=== PATIENT | female | born 1955 | race Caucasian/White ===

== ENCOUNTER 2016-09-08 18:15 | Inpatient (IN) | payer BC, MEDICAID ==
[~2016-09-08] VITALS: Ht 149.9 cm; Wt 78.7 kg
--- NOTE | 2016-09-08 18:33 | EKG ---
[address] [address] Test Date: 2016-09-08 Test Time: 18:16:03 Pat Name: COLIN HOPKINS Department: Room: Gender: F Telecommunications Administrator: JACKELINE : 1955 Requested By: ALONDRA BROWN Order Number: [id number] Reading MD: Melvin Coppola Measurements Intervals [place] Rate: 87 P: 0 CA: 104 QRS: 20 QRSD: 90 T: 88 QT: 354 QTc: 432 Interpretive Statements SINUS RHYTHM NON-SPECIFIC ST/T CHANGES Electronically Signed On 09-10-2016 13:16:58 CDT by Melvin Coppola
--- NOTE | 2016-09-08 18:35 | PHYS DOC ---
General Chief Complaint: PSYCH EVALUATION Stated Complaint: PSYCH EVALUATION Time Seen by MD: 18:22 Source: patient, [facility] records Exam Limitations: clinical condition Problems: History of Present Illness Initial Comments Pt is 61/F to ED via EMS from [facility] for medical clearance and [facility] admission. [place] records indicate that pt has stopped eating the past three days. Pt "noncompliant" with her medications and reportedly has refused to bathe the past month. Pt spends her time in bed, won't change her clothes. Pt meds titrated without any real improvement, pt sent for medical clearance and [facility] admission pre-accepted by Dr Cunningham. Full code Timing/Duration: other (3-4 weeks) Severity: severe Modifying Factors: improves with other Associated Symptoms: loss of appetite, malaise, weakness, other Allergies: Coded Allergies: No Known Drug Allergies (Unverified , 09/08/16) Past Medical History Medical History: other (HLP, hypothyroid, chronic pain, HTN, tremor) Surgical History: noncontributory Psychosocial History: other (schizoaffective disorder, MDD, dementia, psychosis , ) Social History Smoker: non-smoker Alcohol: none Drugs: none Review of Systems Constitutional: denies diaphoresis, denies fever EENTM: denies throat swelling, denies mouth swelling Respiratory: denies cough, denies shortness of breath Cardiovascular: denies chest pain, denies syncope Gastrointestinal: denies diarrhea, denies vomiting Musculoskeletal: denies joint swelling, denies neck pain Psychiatric/Neurological: see HPI Hematologic/Lymphatic: denies anemia, denies blood clots Physical Exam General Appearance: no apparent distress (disheveled) Eyes: bilateral eye EOMI, bilateral eye PERRL, bilateral eye normal inspection Ear, Nose, Throat: hearing grossly normal, normal ENT inspection Neck: non-tender, supple Respiratory: normal breath sounds, no respiratory distress Cardiovascular: normal peripheral pulses, regular rate, rhythm Gastrointestinal: normal bowel sounds, soft Back: no CVA tenderness, no vertebral tenderness Extremities: normal inspection Neurologic/Psychiatric: political consultant II-XII nml as tested, no motor/sensory deficits, alert, oriented x 3, depressed affect Skin: normal color, warm/dry Orders, Labs, Meds EKG: NSR 87 bpm, diffuse T flattening borderline low voltage no STEMI UA grossly +, will tx cipro while awaiting C/S Labs unremarkable Pt medically cleared for [facility] admission, Dr Cunningham is accepting. Very prolonged ED course due to lab delay and need for urine sample Departure Time of Disposition: 20:59 Disposition: 09 ADMITTED INPATIENT Diagnosis: MDD, UTI Condition: STABLE Additional Instructions: [facility] admission Dr Cunningham is accepting. Cipro tx UTI C/S pending. ALONDRA BROWN DO September 08, 2016 18:35
[2016-09-08 19:01] LABS: ALBUMIN 3.8 g/dL (3.4-5.0); CREATININE 0.9 mg/dL (0.6-1.0); GFR 63.4; POTASSIUM 3.6 mmol/L (3.5-5.1); TOTAL BILIRUBIN 0.5 mg/dL (0.2-1.0); TOTAL PROTEIN 7.6 g/dL (6.4-8.2)
[2016-09-08 19:38] LABS: BILIRUBIN,URINE NEG (NEG); CLARITY,URINE CLOUDY; COLOR,URINE YELLOW; GLUCOSE,URINE NEG (NEG)
[2016-09-08 19:39] LABS: NITRITE,URINE NEG (NEG); UROBILINOGEN,URINE 0.2 mg/dL (0.2 mg/dL)
[2016-09-08 19:40] LABS: BACTERIA,URINE MOD /HPF (0-FEW); SQUAMOUS EPITHELIAL CELL,UR FEW /LPF
[2016-09-08 20:32] LABS: HEMATOCRIT 43.9 % (36.0-47.0); HEMOGLOBIN 14.8 g/dL (12.0-15.5); RED BLOOD COUNT 5.01 x10^6/uL (3.50-5.40); WHITE BLOOD COUNT 7.6 x10^3/uL (4.0-11.0)
[2016-09-08 20:33] LABS: BASO # 0.1 x10^3/uL (0.0-0.2); BASO % 1 % (0-3); EOS # 0.1 x10^3/uL (0.0-0.7); EOS % 1 % (0-3); LYMPH # 1.6 x10^3/uL (1.0-4.8); LYMPH % 21 % (24-48); MEAN CORPUSCULAR HEMOGLOBIN 30 pg (25-35); MEAN CORPUSCULAR HGB CONC 34 g/dL (31-37); MEAN CORPUSCULAR VOLUME 88 fL (79-100); MONO # 0.5 x10^3/uL (0.0-1.1); MONO % 6 % (0-9); NEUT # 5.4 x10^3uL (1.8-7.7); NEUT % 71 % (31-73); PLATELET COUNT 167 x10^3/uL (140-400); RED CELL DISTRIBUTION WIDTH 14.9 % (11.5-14.5)
[2016-09-08 20:55] LABS: AMPHETAMINE/METHAMPHETAMINE NEG (NEG); BARBITURATES NEG (NEG); BENZODIAZEPINES NEG (NEG); CANNABINOIDS NEG (NEG); COCAINE NEG (NEG); METHADONE NEG (NEG); OPIATES NEG (NEG); PHENCYCLIDINE NEG (NEG)
[2016-09-08] MEDS ORDERED: ACETAMINOPHEN 325 MG TABLET PO PRN ×2 (21:00→23:15)
[2016-09-08 21:35] VITALS: BP 136/80
[2016-09-08] MEDS ORDERED: RISP1TAB3 PO (22:30)
[2016-09-08] MEDS ORDERED: FISH12002 PO (22:30)
[2016-09-08] MEDS ORDERED: RISP0.5T3 PO (22:30)
[2016-09-08] MEDS ORDERED: ATOR10TA60 PO (22:48)
[2016-09-08] MEDS ORDERED: MULT-237 PO (22:48)
[2016-09-08] MEDS ORDERED: BENZ0.5T PO (22:48)
[2016-09-08] MEDS ORDERED: GABA-586 PO (22:48)
[2016-09-08] MEDS ORDERED: LEVO75TA5 PO (22:48)
[2016-09-08] MEDS ORDERED: NAPR220C PO (22:48)
[2016-09-08] MEDS ORDERED: POTA20LI27 PO (22:48)
[2016-09-08] MEDS ORDERED: BUPR300T3 PO (22:48)
[2016-09-08] MEDS: CIPROFLOXACIN HCL 500 MG TABLET PO SCH (22:52)
[2016-09-08] MEDS ORDERED: MAGNESIUM HYDROXIDE 2,400 MG/30 ML ORAL.SUSP. PO PRN (23:15)
[2016-09-08] MEDS ORDERED: METHYL SALICYLATE/MENTHOL TOPICAL OINTMENT 29GM TUBE. TP PRN (23:15)
[2016-09-08] MEDS ORDERED: MAG HYDROX/AL HYDROX/SIMETH 30 ML ORAL.SUSP PO PRN (23:15)
--- NOTE | 2016-09-09 06:21 | ACF ---
Admission Criteria Forms PSYCHIATRIC DISORDERS Clinical Indications for Inpatient Care (Place 'X' for any and all applicable criteria): Ongoing inpatient care may be needed for ANY ONE of the following(1)(2)(3)(4)(6) (7)(8): [ ]I. Danger to self or others not manageable at lower level of care. [X]II. Grave disability (eg, inability to perform self care necessary at lower level of care) [ ]III. Agitation or inappropriate behavior interfering with care for primary condition (eg, attempting to discontinue lines or drains prematurely, unable to cooperate with respiratory care) [ ]IV. Severe disability or disorder indicated by ALL of the following: [ ]a) Severe behavioral health disorder-related symptoms or condition indicated by ANY ONE of the following: [ ]i) Severe problem with cognition, memory, judgment, or impulse control [ ]ii) Severe clinical manifestations (eg, hallucinations, delusions, other acute psychotic symptoms, chiquis, extreme agitation or anxiety) [ ]b) Patient management at lower level of care is not feasible until acute intervention or modification is initiated. Extended stay beyond goal length of stay for the primary condition may be indicated when ANY ONE of the following is present: (1)(2)(3)(4): [ ]a) Patient is a danger to self or others and not manageable at lower level of care. [ ]b) Behavior crisis management, including physical or chemical restraints, is required and is not available at a lower level of care. [ ]c) Behavioral symptoms (e.g., agitation, somnolence, inappropriate behavior) are present, and are not manageable at a lower level of care. [ ]d) Patient cannot understand follow-up treatment and crisis plan. [ ]e) Provider and supports are not sufficiently available at lower level of care. [ ]f) Patient cannot participate (e.g., verify absence of plan for harm) and is in needed of monitoring. The original [employer] content created by [employer] has been revised. The portions of the content which have been revised are identified through the use of italic text or in bold, and [email or web address] has neither reviewed nor approved the modified material. All other unmodified content is copyright [facility] [employer]. Please see references footnoted in the original [facility] edition 2016 Admission Criteria Met?: Yes SABRINA POWER September 09, 2016 06:21
[2016-09-09 06:30] VITALS: BP 146/88
[2016-09-09] MEDS: CIPROFLOXACIN HCL 500 MG TABLET PO SCH ×2 (08:08→22:06)
--- NOTE | 2016-09-09 13:45 | HP ---
ADMIT DATE: 09/09/2016 REASON FOR ADMISSION TO THE SENIOR BEHAVIORAL UNIT: This is a 61-year-old female, who came from [facility] in [place], [place]. It has been reported that she has stopped eating for 3 days, noncompliant with her meds for 3 weeks, has not bathe in 4 weeks, staying in bed, will not change her clothes and possible suicidal ideation. The patient emphatically denies this and became quite angry when I asked her. The patient states she was not feeling good, had a stomach ache and that is why she was not eating. She also states she takes a shower twice a week and she had a shower last night. She was given a shower when she arrived on the unit. Further investigation with questions was not possible because she refused to answer any more questions, got up to leave, but did come back and allowed me to finish my exam. PAST MEDICAL HISTORY: Schizoaffective disorder, major depressive disorder, hyperlipidemia, hypothyroidism, chronic pain, dementia, psychosis, hypertension and tremors. ALLERGIES: None. MEDICATIONS CHANGES: On 08/23/2016, she was prescribed Risperdal 2.5 mg at bedtime. This was discontinued on 09/04/2016 and she was prescribed Risperdal 1 mg at bedtime and 0.5 mg in the morning. Does not appear to be any other medication changes. Also on 08/23/2016, she had been on Wellbutrin 100 mg and it was increased to 300 mg. REVIEW OF SYSTEMS: The patient refused to answer. SOCIAL HISTORY: Resides at [facility]. OBJECTIVE: VITAL SIGNS: Blood pressure 146/88, temperature 97.4, pulse 72, respirations 16, pulse ox 98% on room air. Height is 59 inches, weight 173 pounds, BMI 34.9. GENERAL: The patient allowed me to do minimal exam. HEENT: Her TMs were intact. Her pupils were equal, round, react to light. Extraocular muscles were intact. Nose was patent. Her throat was clear. NECK: Short, supple. LUNGS: Clear. She has a little bit of dowager hump. CARDIOVASCULAR: Regular rhythm and rate. ABDOMEN: Soft, nontender. EXTREMITIES: Without edema. Remainder of the exam was not possible due to the patient leaving. LABORATORY DATA: Negative CBC, random glucose of 158. Magnesium was 2.4. Drug screen negative. Urine 11 to 20 white cells, small leukocyte esterase. ASSESSMENT: A 61-year-old with possible urinary tract infection, major depressive disorder, noncompliant with cares, schizoaffective disorder, hyperlipidemia, hypothyroidism, chronic pain, dementia with psychosis. PLAN: Await the rest of her labs and follow along with Dr. Cunningham and will treat her empirically for UTI until the culture comes back. LAKEISHA STYLES DO DR: MARY KAY/anjum JOB#: [id number] / [id number]
[2016-09-09 15:45] VITALS: BP 160/81
[2016-09-09 19:08] LABS: T3 TOTAL 110 ng/dL (71-180)
[2016-09-09] MEDS ORDERED: NAPROXEN 250 MG TABLET PO PRN (19:45)
--- NOTE | 2016-09-09 21:03 | PDOC ---
Exam Jorge Demential Exam: Jorge Note: Please also refer to the separate dictated note~for this date of service dictated separately.~Patient seen individually. Discussed the patient with Nursing staff reviewed the chart.~Reviewed interim history and current functioning. Reviewed vital signs,~Labs/ Radiology~and current medications noted below. Continue current treatment with the changes noted in the dictated addendum note Assessment: Vital Signs: Vital Signs Date Time Temp Pulse Resp B/P Pulse Ox O2 Delivery O2 Flow Rate FiO2 09/09/16 15:45 97.7 88 19 160/81 95 09/08/16 21:10 Room Air I&O Intake and Output 09/09/16 07:00 # Voids 1 Current Medications: Meds: Current Medications Ciprofloxacin (Cipro) 500 mg BID PO Last administered on 09/09/16 08:08; Start 09/08/16 at 21:30 Acetaminophen (Tylenol) 650 mg PRN Q6HRS PRN PO PAIN / TEMP Last administered on 09/08/16 22:52; Start 09/08/16 at 21:00; Stop 09/08/16 at 23:46; Status DC Acetaminophen (Tylenol) 650 mg PRN Q6HRS PRN PO PAIN / TEMP; Start 09/08/16 at 23:15 Multi-Ingredient Ointment (Analgesic [place]) 1 nely PRN QID PRN TP MUSCLE PAIN; Start 09/08/16 at 23:15 Al Hydroxide/Mg Hydroxide (Mylanta Plus Xs) 15 ml PRN AFTMEALHC PRN PO DYSPEPSIA; Start 09/08/16 at 23:15 Magnesium Hydroxide (Milk Of Magnesia) 2,400 mg PRN QHS PRN PO CONSTIPATION; Start 09/08/16 at 23:15 Risperidone (Risperdal) 1 mg BID PO ; Start 09/09/16 at 21:00 Divalproex Sodium (Depakote Er) 500 mg QHS PO ; Start 09/09/16 at 21:00 Atorvastatin Calcium (Lipitor) 10 mg QHS PO ; Start 09/09/16 at 21:00 Benztropine Mesylate (Cogentin) 0.25 mg DAILY PO ; Start 09/10/16 at 09:00 Bupropion HCl (Wellbutrin Xl) 300 mg DAILY08 PO ; Start 09/10/16 at 08:00 Gabapentin (Neurontin) 300 mg TID PO ; Start 09/09/16 at 21:00 Levothyroxine Sodium (Synthroid) 75 mcg DAILYAC PO ; Start 09/10/16 at 07:30 Potassium Chloride (KCl Oral Soln) 20 meq DAILY PO ; Start 09/10/16 at 09:00 Fish Oil (Fish Oil) 1,000 mg DAILY PO ; Start 09/10/16 at 09:00 Multivitamins/ Calcium (Thera-M Plus) 1 tab DAILY PO ; Start 09/10/16 at 09:00 Naproxen (Naprosyn) 250 mg PRN Q12HR PRN PO PAIN/LEG CRAMPS; Start 09/09/16 at 19:45 Active Scripts Active Reported Naproxen Sodium 220 Mg Capsule 220 Mg PO Q12HR PRN LAST DOSE GIVEN: DATE: TIME: NEXT DOSE DUE: DATE: TIME: Gabapentin 300 Mg Capsule 300 Mg PO TID Levothyroxine Sodium 75 Mcg Tablet 75 Mcg PO DAILYAC Atorvastatin Calcium 10 Mg Tablet 10 Mg PO QHS Wellbutrin Xl (Bupropion Hcl) 300 Mg Tab.er.24h 300 Mg PO DAILY08 LAST DOSE GIVEN: DATE: TIME: NEXT DOSE DUE: DATE: TIME: Daily Vitamin Formula-Minerals (Multivitamin With Minerals) 1 Each Tablet 1 Each PO DAILY LAST DOSE GIVEN: DATE: TIME: NEXT DOSE DUE: DATE: TIME: Benztropine Mesylate 0.5 Mg Tablet 0.25 Mg PO DAILY LAST DOSE GIVEN: DATE: TIME: NEXT DOSE DUE: DATE: TIME: Potassium Chloride Oral Liquid (Potassium Chloride) 20 Meq/15 Ml Liquid 20 Meq PO DAILY LAST DOSE GIVEN: DATE: TIME: NEXT DOSE DUE: DATE: TIME: Risperidone 0.5 Mg Tablet 0.5 Mg PO Q AM LAST DOSE GIVEN: DATE: TIME: NEXT DOSE DUE: DATE: TIME: [place] 3-6-9 1,200 mg Softgel (Fish Oil/Borage/Flax/Om3,6,9#1) 1,200 Mg Capsule 1 ,000 Mg PO DAILY LAST DOSE GIVEN: DATE: TIME: NEXT DOSE DUE: DATE: TIME: Risperidone 1 Mg Tablet 1 Mg PO HS LAST DOSE GIVEN: DATE: TIME: NEXT DOSE DUE: DATE: TIME: Diagnosis: Problems: (1) Urinary tract infection (2) MDD (major depressive disorder) (3) Bipolar affective, mixed, sev w/ psych (4) Anxiety disorder (5) Impulse control disorder (6) Schizoaffective disorder, bipolar type (7) Schizoaffective disorder, chronic condition with acute exacerbation EVERETT BROOKS MD September 09, 2016 21:03
[2016-09-09] MEDS: GABAPENTIN 300 MG CAPSULE. PO SCH (22:05)
[2016-09-09] MEDS: risperiDONE 1 MG TABLET. PO SCH (22:06)
[2016-09-09] MEDS: ATORVASTATIN CALCIUM 10 MG TABLET. PO SCH (22:06)
[2016-09-09] MEDS: DIVALPROEX ER 500 MG TAB.ER.24H PO SCH (22:06)
[2016-09-10 03:10] LABS: HEMOGLOBIN A1C 5.9 % (4.8-5.6)
--- NOTE | 2016-09-10 07:05 | HP ---
ADMIT DATE: 09/09/2016 This is a late entry for 09/09/2016 IDENTIFYING DATA: The patient is a 61-year-old female referred to us from [facility] by Dr. Varela, her primary care physician, after the nursing staff called me as an emergency on account of the patient's increasing psychotic symptoms being noncompliant with medications for 3 weeks, not bathing for 4 weeks, staying in bed, refusing to change clothes, voicing suicidal ideation. She had failed outpatient psychiatric interventions with myself for her schizoaffective disorder, bipolar type and had been getting increasingly psychotic and depressed recently resulting in this referral. CHIEF COMPLAINT: "Leave me alone." HISTORY OF PRESENT ILLNESS: The patient has a long history of schizoaffective disorder, bipolar type. I have followed her from a psychiatric standpoint at the [facility] and she has consistently refused to interact with me, has been withdrawn in her bed, still was compliant until recently. As noted above, she has been increasingly psychotic, depressed, hopeless, worthless voicing suicidal ideation resulting in this referral. No homicidal ideation. Cognitively, she has some memory deficits, but reasonably intact despite this. In the Emergency Room at [facility], she was found to have a UTI, treated on Cipro. PAST PSYCHIATRIC HISTORY: Schizoaffective disorder, bipolar type. PAST MEDICAL HISTORY: Hyperlipidemia, hypothyroidism, hypertension, tremors, chronic pain. DRUG ALLERGIES: Negative. CODE STATUS: Full code. DIET: Regular. FAMILY HISTORY: Noncontributory. SOCIAL HISTORY: No alcohol, drug abuse, physical, sexual or elder abuse. She is not known to be a perpetrator. Vital signs are noted in my initial note. REVIEW OF SYSTEMS: Positive for tiredness. No CV, , pulmonary, eye, ENT system symptoms on review. She is quite withdrawn, irritable, not very interactive. MENTAL STATUS EXAMINATION: The patient is oriented to herself, depressed, angry, irritable as I met with her, quite withdrawn with a flat affect, but since being on the unit, she eaten had eaten breakfast and lunch on 09/09, several bites of supper. Reportedly has been hallucinating, delusional "people are coming in the room with knives to kill me." She has been talking to others who are not there in her room. No active suicidal or homicidal ideation. Attention span short. Short term memory has some deficits. LABORATORY DATA: Reviewed. IMPRESSION: Schizoaffective disorder, bipolar type, depressed with psychotic features; anxiety disorder, unspecified; cognitive disorder, unspecified; impulse control disorder, unspecified; urinary tract infection. Rest diagnoses as above. PLAN: Admit to the geropsychiatry unit at [facility]. I will see the patient daily. From a psychiatric standpoint, medical followup with Dr. Dickerson/Dr. Summers. Increased the Risperdal from current dosage 1.5 mg a day to 2 mg a day, start Depakote ER 500 mg at bedtime. Follow labs level to reach a therapeutic level. Continue Wellbutrin-XL 300 mg a day. Further changes will be determined after the above effects determined and evaluated. MAN Christel BROOKS MD DR: STEPHANIE/anjum JOB#: [id number] / [id number]
[2016-09-10] MEDS: LEVOTHYROXINE 75 MCG TABLET PO SCH (07:30)
[2016-09-10] MEDS: risperiDONE 1 MG TABLET. PO SCH (07:55)
[2016-09-10] MEDS: CIPROFLOXACIN HCL 500 MG TABLET PO SCH ×2 (07:56→20:15)
[2016-09-10] MEDS: GABAPENTIN 300 MG CAPSULE. PO SCH ×3 (07:57→20:21)
[2016-09-10] MEDS: BENZTROPINE MESYLATE 0.5 MG TABLET PO SCH (07:57)
[2016-09-10] MEDS: buPROPion XL 300 MG TAB.ER.24H. PO SCH (07:57)
[2016-09-10] MEDS: OMEGA-3 FATTY ACIDS/FISH OIL 1,000 MG CAPSULE. PO SCH (08:04)
[2016-09-10] MEDS: MULTIVITAMIN with MINERAL TABLET. PO SCH (08:04)
[2016-09-10] MEDS: POTASSIUM CHLORIDE 20 MEQ/15 ML ORAL LIQUID. PO SCH (08:04)
[2016-09-10 09:00] VITALS: BP 145/75
[2016-09-10 15:53] VITALS: BP 122/77
[2016-09-10] MEDS: ATORVASTATIN CALCIUM 10 MG TABLET. PO SCH (20:21)
[2016-09-10] MEDS: DIVALPROEX ER 500 MG TAB.ER.24H PO SCH (20:21)
--- NOTE | 2016-09-10 20:23 | PDOC ---
Exam Jorge Demential Exam: Jorge Note: Please also refer to the separate dictated note~for this date of service dictated separately.~Patient seen individually. Discussed the patient with Nursing staff reviewed the chart.~Reviewed interim history and current functioning. Reviewed vital signs,~Labs/ Radiology~and current medications noted below. Continue current treatment with the changes noted in the dictated addendum note Assessment: Vital Signs: Vital Signs Date Time Temp Pulse Resp B/P (MAP) Pulse Ox O2 Delivery O2 Flow Rate FiO2 09/10/16 15:53 98.4 76 16 122/77 (92) 96 09/08/16 21:10 Room Air I&O Intake and Output 09/10/16 07:00 Intake Total 720 ml Balance 720 ml Intake Oral 720 ml # Voids 1 Current Medications: Meds: Current Medications Ciprofloxacin (Cipro) 500 mg BID PO Last administered on 09/10/16 07:56; Start 09/08/16 at 21:30; Stop 09/10/16 at 10:49; Status DC Acetaminophen (Tylenol) 650 mg PRN Q6HRS PRN PO PAIN / TEMP Last administered on 09/08/16 22:52; Start 09/08/16 at 21:00; Stop 09/08/16 at 23:46; Status DC Acetaminophen (Tylenol) 650 mg PRN Q6HRS PRN PO PAIN / TEMP; Start 09/08/16 at 23:15 Multi-Ingredient Ointment (Analgesic [place]) 1 nely PRN QID PRN TP MUSCLE PAIN; Start 09/08/16 at 23:15 Al Hydroxide/Mg Hydroxide (Mylanta Plus Xs) 15 ml PRN AFTMEALHC PRN PO DYSPEPSIA; Start 09/08/16 at 23:15 Magnesium Hydroxide (Milk Of Magnesia) 2,400 mg PRN QHS PRN PO CONSTIPATION; Start 09/08/16 at 23:15 Risperidone (Risperdal) 1 mg BID PO Last administered on 09/10/16 07:55; Start 09/09/16 at 21:00; Stop 09/10/16 at 17:54; Status DC Divalproex Sodium (Depakote Er) 500 mg QHS PO Last administered on 09/09/16 22: 06; Start 09/09/16 at 21:00 Atorvastatin Calcium (Lipitor) 10 mg QHS PO Last administered on 09/09/16 22:06 ; Start 09/09/16 at 21:00 Benztropine Mesylate (Cogentin) 0.25 mg DAILY PO Last administered on 09/10/16 07:57; Start 09/10/16 at 09:00 Bupropion HCl (Wellbutrin Xl) 300 mg DAILY08 PO Last administered on 09/10/16 07:57; Start 09/10/16 at 08:00 Gabapentin (Neurontin) 300 mg TID PO Last administered on 09/10/16 07:57; Start 09/09/16 at 21:00 Levothyroxine Sodium (Synthroid) 75 mcg DAILYAC PO ; Start 09/10/16 at 07:30 Potassium Chloride (KCl Oral Soln) 20 meq DAILY PO ; Start 09/10/16 at 09:00 Fish Oil (Fish Oil) 1,000 mg DAILY PO ; Start 09/10/16 at 09:00 Multivitamins/ Calcium (Thera-M Plus) 1 tab DAILY PO ; Start 09/10/16 at 09:00 Naproxen (Naprosyn) 250 mg PRN Q12HR PRN PO PAIN/LEG CRAMPS; Start 09/09/16 at 19:45 Ciprofloxacin (Cipro) 250 mg BID PO Last administered on 09/10/16 20:15; Start 09/10/16 at 21:00; Stop 09/11/16 at 09:00 Risperidone (RisperDAL [place]) 25 mg Q2WKS IM ; Start 09/11/16 at 09:00; Status UNV Active Scripts Active Reported Naproxen Sodium 220 Mg Capsule 220 Mg PO Q12HR PRN LAST DOSE GIVEN: DATE: TIME: NEXT DOSE DUE: DATE: TIME: Gabapentin 300 Mg Capsule 300 Mg PO TID Levothyroxine Sodium 75 Mcg Tablet 75 Mcg PO DAILYAC Atorvastatin Calcium 10 Mg Tablet 10 Mg PO QHS Wellbutrin Xl (Bupropion Hcl) 300 Mg Tab.er.24h 300 Mg PO DAILY08 LAST DOSE GIVEN: DATE: TIME: NEXT DOSE DUE: DATE: TIME: Daily Vitamin Formula-Minerals (Multivitamin With Minerals) 1 Each Tablet 1 Each PO DAILY LAST DOSE GIVEN: DATE: TIME: NEXT DOSE DUE: DATE: TIME: Benztropine Mesylate 0.5 Mg Tablet 0.25 Mg PO DAILY LAST DOSE GIVEN: DATE: TIME: NEXT DOSE DUE: DATE: TIME: Potassium Chloride Oral Liquid (Potassium Chloride) 20 Meq/15 Ml Liquid 20 Meq PO DAILY LAST DOSE GIVEN: DATE: TIME: NEXT DOSE DUE: DATE: TIME: Risperidone 0.5 Mg Tablet 0.5 Mg PO Q AM LAST DOSE GIVEN: DATE: TIME: NEXT DOSE DUE: DATE: TIME: [place] 3-6-9 1,200 mg Softgel (Fish Oil/Borage/Flax/Om3,6,9#1) 1,200 Mg Capsule 1 ,000 Mg PO DAILY LAST DOSE GIVEN: DATE: TIME: NEXT DOSE DUE: DATE: TIME: Risperidone 1 Mg Tablet 1 Mg PO HS LAST DOSE GIVEN: DATE: TIME: NEXT DOSE DUE: DATE: TIME: Diagnosis: Problems: (1) Urinary tract infection (2) MDD (major depressive disorder) (3) Bipolar affective, mixed, sev w/ psych (4) Anxiety disorder (5) Impulse control disorder (6) Schizoaffective disorder, bipolar type (7) Schizoaffective disorder, chronic condition with acute exacerbation EVERETT BROOKS MD September 10, 2016 20:23
[2016-09-11 06:37] VITALS: BP 172/107
[2016-09-11] MEDS: LEVOTHYROXINE 75 MCG TABLET PO SCH (07:30)
[2016-09-11 08:00] VITALS: BP 152/80
[2016-09-11] MEDS: buPROPion XL 300 MG TAB.ER.24H. PO SCH (08:00)
[2016-09-11] MEDS: MULTIVITAMIN with MINERAL TABLET. PO SCH (09:00)
[2016-09-11] MEDS: GABAPENTIN 300 MG CAPSULE. PO SCH ×3 (09:00→18:48)
[2016-09-11] MEDS: POTASSIUM CHLORIDE 20 MEQ/15 ML ORAL LIQUID. PO SCH (09:00)
[2016-09-11] MEDS: CIPROFLOXACIN HCL 500 MG TABLET PO SCH (09:00)
[2016-09-11] MEDS: BENZTROPINE MESYLATE 0.5 MG TABLET PO SCH (09:00)
[2016-09-11] MEDS: OMEGA-3 FATTY ACIDS/FISH OIL 1,000 MG CAPSULE. PO SCH (09:00)
[2016-09-11] MEDS ORDERED: risperiDONE MICROSPHERES 25 MG/2 ML DISP.SYRIN. IM SCH (13:00)
[2016-09-11 15:50] VITALS: BP 159/95
[2016-09-11] MEDS: CYANOCOBALAMIN (VITAMIN B-12) 250 MCG TABLET PO SCH (16:46)
[2016-09-11] MEDS: DIVALPROEX ER 500 MG TAB.ER.24H PO SCH (18:48)
[2016-09-11] MEDS: ATORVASTATIN CALCIUM 10 MG TABLET. PO SCH (18:48)
--- NOTE | 2016-09-11 20:14 | PDOC ---
Exam Jorge Demential Exam: Jorge Note: Please also refer to the separate dictated note~for this date of service dictated separately.~Patient seen individually. Discussed the patient with Nursing staff reviewed the chart.~Reviewed interim history and current functioning. Reviewed vital signs,~Labs/ Radiology~and current medications noted below. Continue current treatment with the changes noted in the dictated addendum note Assessment: Vital Signs: Vital Signs Date Time Temp Pulse Resp B/P (MAP) Pulse Ox O2 Delivery O2 Flow Rate FiO2 09/11/16 15:50 97.9 78 20 159/95 (116) 96 09/08/16 21:10 Room Air I&O Intake and Output 09/11/16 07:00 Intake Total 960 ml Balance 960 ml Intake Oral 960 ml # Voids 1 Current Medications: Meds: Current Medications Ciprofloxacin (Cipro) 500 mg BID PO Last administered on 09/10/16 07:56; Start 09/08/16 at 21:30; Stop 09/10/16 at 10:49; Status DC Acetaminophen (Tylenol) 650 mg PRN Q6HRS PRN PO PAIN / TEMP Last administered on 09/08/16 22:52; Start 09/08/16 at 21:00; Stop 09/08/16 at 23:46; Status DC Acetaminophen (Tylenol) 650 mg PRN Q6HRS PRN PO PAIN / TEMP; Start 09/08/16 at 23:15 Multi-Ingredient Ointment (Analgesic [place]) 1 nely PRN QID PRN TP MUSCLE PAIN; Start 09/08/16 at 23:15 Al Hydroxide/Mg Hydroxide (Mylanta Plus Xs) 15 ml PRN AFTMEALHC PRN PO DYSPEPSIA; Start 09/08/16 at 23:15 Magnesium Hydroxide (Milk Of Magnesia) 2,400 mg PRN QHS PRN PO CONSTIPATION; Start 09/08/16 at 23:15 Risperidone (Risperdal) 1 mg BID PO Last administered on 09/10/16 07:55; Start 09/09/16 at 21:00; Stop 09/10/16 at 17:54; Status DC Divalproex Sodium (Depakote Er) 500 mg QHS PO Last administered on 09/11/16 18: 48; Start 09/09/16 at 21:00 Atorvastatin Calcium (Lipitor) 10 mg QHS PO Last administered on 09/11/16 18:48 ; Start 09/09/16 at 21:00 Benztropine Mesylate (Cogentin) 0.25 mg DAILY PO Last administered on 09/10/16 07:57; Start 09/10/16 at 09:00 Bupropion HCl (Wellbutrin Xl) 300 mg DAILY08 PO Last administered on 09/10/16 07:57; Start 09/10/16 at 08:00 Gabapentin (Neurontin) 300 mg TID PO Last administered on 09/11/16 18:48; Start 09/09/16 at 21:00 Levothyroxine Sodium (Synthroid) 75 mcg DAILYAC PO ; Start 09/10/16 at 07:30 Potassium Chloride (KCl Oral Soln) 20 meq DAILY PO ; Start 09/10/16 at 09:00 Fish Oil (Fish Oil) 1,000 mg DAILY PO Last administered on 09/11/16 09:00; Start 09/10/16 at 09:00 Multivitamins/ Calcium (Thera-M Plus) 1 tab DAILY PO ; Start 09/10/16 at 09:00 Naproxen (Naprosyn) 250 mg PRN Q12HR PRN PO PAIN/LEG CRAMPS; Start 09/09/16 at 19:45 Ciprofloxacin (Cipro) 250 mg BID PO Last administered on 09/11/16 09:00; Start 09/10/16 at 21:00; Stop 09/11/16 at 09:00; Status DC Risperidone (RisperDAL CONSTA) 25 mg Q2WKS IM Last administered on 09/11/16 13: 18; Start 09/11/16 at 13:00 Cyanocobalamin (Vitamin B-12) 250 mcg DAILYBFRSUP PO ; Start 09/11/16 at 17:00 Risperidone (Risperdal) 0.5 mg DAILY SL ; Start 09/12/16 at 09:00 Active Scripts Active Reported Naproxen Sodium 220 Mg Capsule 220 Mg PO Q12HR PRN LAST DOSE GIVEN: DATE: TIME: NEXT DOSE DUE: DATE: TIME: Gabapentin 300 Mg Capsule 300 Mg PO TID Levothyroxine Sodium 75 Mcg Tablet 75 Mcg PO DAILYAC Atorvastatin Calcium 10 Mg Tablet 10 Mg PO QHS Wellbutrin Xl (Bupropion Hcl) 300 Mg Tab.er.24h 300 Mg PO DAILY08 LAST DOSE GIVEN: DATE: TIME: NEXT DOSE DUE: DATE: TIME: Daily Vitamin Formula-Minerals (Multivitamin With Minerals) 1 Each Tablet 1 Each PO DAILY LAST DOSE GIVEN: DATE: TIME: NEXT DOSE DUE: DATE: TIME: Benztropine Mesylate 0.5 Mg Tablet 0.25 Mg PO DAILY LAST DOSE GIVEN: DATE: TIME: NEXT DOSE DUE: DATE: TIME: Potassium Chloride Oral Liquid (Potassium Chloride) 20 Meq/15 Ml Liquid 20 Meq PO DAILY LAST DOSE GIVEN: DATE: TIME: NEXT DOSE DUE: DATE: TIME: Risperidone 0.5 Mg Tablet 0.5 Mg PO Q AM LAST DOSE GIVEN: DATE: TIME: NEXT DOSE DUE: DATE: TIME: [place] 3-6-9 1,200 mg Softgel (Fish Oil/Borage/Flax/Om3,6,9#1) 1,200 Mg Capsule 1 ,000 Mg PO DAILY LAST DOSE GIVEN: DATE: TIME: NEXT DOSE DUE: DATE: TIME: Risperidone 1 Mg Tablet 1 Mg PO HS LAST DOSE GIVEN: DATE: TIME: NEXT DOSE DUE: DATE: TIME: Diagnosis: Problems: (1) Urinary tract infection (2) MDD (major depressive disorder) (3) Bipolar affective, mixed, sev w/ psych (4) Anxiety disorder (5) Impulse control disorder (6) Schizoaffective disorder, bipolar type (7) Schizoaffective disorder, chronic condition with acute exacerbation EVERETT BROOKS MD September 11, 2016 20:14
[2016-09-12 02:14] LABS: BACTERIA,URINE FEW /HPF (0-FEW); BILIRUBIN,URINE NEG (NEG); CLARITY,URINE HAZY; COLOR,URINE YELLOW; GLUCOSE,URINE NEG (NEG); NITRITE,URINE NEG (NEG); RBC,URINE OCC /HPF (0-2); UROBILINOGEN,URINE 0.2 mg/dL (0.2 mg/dL)
[2016-09-12 02:15] LABS: SQUAMOUS EPITHELIAL CELL,UR FEW /LPF
--- NOTE | 2016-09-12 02:33 | PN ---
DATE: 09/10/2016 This is a late entry, covers elements not covered in my initial note. SUBJECTIVE: The patient was staffed at treatment team meeting with the entire team and then seen individually at length. Review of her history indicates that symptoms started after she had a hysterectomy in 2003. Since then, her psychotic symptoms have gradually worsened. Son was appointed guardian in 2010. She has a history of not eating for an extended period of time or bathing has been more withdrawn, refusing her medications, slept two hours previous night. Appetite, 50%; I met with her in her room. REVIEW OF SYSTEMS: Positive for being tired. No CV, , pulmonary, eye system symptoms on review. MENTAL STATUS EXAM: Oriented to herself and situation. Speech has some latency, coherent. Abstraction fair, computation impaired, language function intact, attention span short. Mood and affect withdrawn. LABORATORY DATA: Reviewed. IMPRESSION: Schizoaffective disorder, bipolar type, mixed versus depressed with psychotic features. Rest unchanged. PLAN: The patient is very noncompliant with medications. We will check with the son who is the guardian and if he approve, we will start her on Risperdal Consta 25 mg IM every 2 weeks and then gradually taper the oral Risperdal, maintain Wellbutrin and Depakote at the current dosage. Follow labs, level on the Depakote, and then adjust to reach a therapeutic level. EVERETT BROOKS MD DR: STEPHANIE/anjum JOB#: [id number] / [id number]
[2016-09-12 06:14] LABS: BASO # 0.1 x10^3/uL (0.0-0.2); BASO % 2 % (0-3); EOS # 0.1 x10^3/uL (0.0-0.7); EOS % 2 % (0-3); HEMATOCRIT 43.9 % (36.0-47.0); HEMOGLOBIN 14.8 g/dL (12.0-15.5); LYMPH # 2.9 x10^3/uL (1.0-4.8); LYMPH % 39 % (24-48); MEAN CORPUSCULAR HEMOGLOBIN 29 pg (25-35); MEAN CORPUSCULAR HGB CONC 34 g/dL (31-37); MEAN CORPUSCULAR VOLUME 87 fL (79-100); MONO # 0.6 x10^3/uL (0.0-1.1); MONO % 8 % (0-9); NEUT # 3.9 x10^3uL (1.8-7.7); NEUT % 51 % (31-73); PLATELET COUNT 165 x10^3/uL (140-400); RED BLOOD COUNT 5.05 x10^6/uL (3.50-5.40); RED CELL DISTRIBUTION WIDTH 14.8 % (11.5-14.5); WHITE BLOOD COUNT 7.6 x10^3/uL (4.0-11.0)
[2016-09-12 06:29] LABS: ALBUMIN 3.8 g/dL (3.4-5.0); ALBUMIN/GLOBULIN RATIO 1.2 (1.0-1.7); ALK PHOS 98 U/L (46-116); ALT (SGPT) 51 U/L (14-59); ANION GAP 9 (6-14); AST (SGOT) 37 U/L (15-37); BLOOD UREA NITROGEN 8 mg/dL (7-20); BUN/CREATININE RATIO 11 (6-20); CARBON DIOXIDE 28 mmol/L (21-32); CHLORIDE 107 mmol/L (98-107); CREATININE 0.7 mg/dL (0.6-1.0); GFR 84.8; GLUCOSE 100 mg/dL (70-99); POTASSIUM 3.7 mmol/L (3.5-5.1); SODIUM 144 mmol/L (136-145); TOTAL BILIRUBIN 0.9 mg/dL (0.2-1.0); TOTAL PROTEIN 6.9 g/dL (6.4-8.2); VAL ACID < 3 mcg/mL (50-100)
[2016-09-12 06:38] VITALS: BP 166/90
[2016-09-12] MEDS: LEVOTHYROXINE 75 MCG TABLET PO SCH (07:40)
[2016-09-12] MEDS: buPROPion XL 300 MG TAB.ER.24H. PO SCH (07:40)
[2016-09-12] MEDS: BENZTROPINE MESYLATE 0.5 MG TABLET PO SCH (07:41)
[2016-09-12] MEDS: OMEGA-3 FATTY ACIDS/FISH OIL 1,000 MG CAPSULE. PO SCH (07:41)
[2016-09-12] MEDS: MULTIVITAMIN with MINERAL TABLET. PO SCH (07:42)
[2016-09-12] MEDS: GABAPENTIN 300 MG CAPSULE. PO SCH ×3 (07:42→20:07)
[2016-09-12] MEDS: POTASSIUM CHLORIDE 20 MEQ/15 ML ORAL LIQUID. PO SCH (07:42)
[2016-09-12] MEDS ORDERED: risperiDONE ORAL 1 MG/ML 30ml BOTTLE. SL SCH (09:00)
[2016-09-12 16:10] VITALS: BP 120/81
[2016-09-12] MEDS: CYANOCOBALAMIN (VITAMIN B-12) 250 MCG TABLET PO SCH (16:48)
--- NOTE | 2016-09-12 19:09 | PDOC ---
Exam Jorge Demential Exam: Jorge Note: Please also refer to the separate dictated note~for this date of service dictated separately.~Patient seen individually. Discussed the patient with Nursing staff reviewed the chart.~Reviewed interim history and current functioning. Reviewed vital signs,~Labs/ Radiology~and current medications noted below. Continue current treatment with the changes noted in the dictated addendum note Assessment: Vital Signs: Vital Signs Date Time Temp Pulse Resp B/P (MAP) Pulse Ox O2 Delivery O2 Flow Rate FiO2 09/12/16 16:10 98.1 83 19 120/81 (94) 97 09/08/16 21:10 Room Air I&O Intake and Output 09/12/16 07:00 Intake Total 480 ml Balance 480 ml Intake Oral 480 ml # Voids 1 Labs: Laboratory Tests Test 09/12/16 01:40 09/12/16 06:03 Urine Collection Type Unknown Urine Color Yellow Urine Clarity Hazy Urine pH 5.5 Urine Specific [place] >=1.030 Urine Protein Neg (NEG-TRACE) Urine Glucose (UA) Neg mg/dL (NEG) Urine Ketones (Stick) 40 mg/dL (NEG) Urine Blood Neg (NEG) Urine Nitrite Neg (NEG) Urine Bilirubin Neg (NEG) Urine Urobilinogen Dipstick 0.2 mg/dL (0.2 mg/dL) Urine Leukocyte Esterase Neg (NEG) Urine RBC Occ /HPF (0-2) Urine WBC 5-10 /HPF (0-4) Urine Squamous Epithelial Cells Few /LPF Urine Transitional Epithelial Cells Few /LPF Urine Bacteria Few /HPF (0-FEW) Urine Mucus Slight /LPF White Blood Count 7.6 x10^3/uL (4.0-11.0) Red Blood Count 5.05 x10^6/uL (3.50-5.40) Hemoglobin 14.8 g/dL (12.0-15.5) Hematocrit 43.9 % (36.0-47.0) Mean Corpuscular Volume 87 fL (79-100) Mean Corpuscular Hemoglobin 29 pg (25-35) Mean Corpuscular Hemoglobin Concent 34 g/dL (31-37) Red Cell Distribution Width 14.8 % (11.5-14.5) H Platelet Count 165 x10^3/uL (140-400) Neutrophils (%) (Auto) 51 % (31-73) Lymphocytes (%) (Auto) 39 % (24-48) Monocytes (%) (Auto) 8 % (0-9) Eosinophils (%) (Auto) 2 % (0-3) Basophils (%) (Auto) 2 % (0-3) Neutrophils # (Auto) 3.9 x10^3uL (1.8-7.7) Lymphocytes # (Auto) 2.9 x10^3/uL (1.0-4.8) Monocytes # (Auto) 0.6 x10^3/uL (0.0-1.1) Eosinophils # (Auto) 0.1 x10^3/uL (0.0-0.7) Basophils # (Auto) 0.1 x10^3/uL (0.0-0.2) Sodium Level 144 mmol/L (136-145) Potassium Level 3.7 mmol/L (3.5-5.1) Chloride Level 107 mmol/L (98-107) Carbon Dioxide Level 28 mmol/L (21-32) Anion Gap 9 (6-14) Blood Urea Nitrogen 8 mg/dL (7-20) Creatinine 0.7 mg/dL (0.6-1.0) Estimated GFR (Cockcroft-Gault) 84.8 BUN/Creatinine Ratio 11 (6-20) Glucose Level 100 mg/dL (70-99) H Calcium Level 9.0 mg/dL (8.5-10.1) Total Bilirubin 0.9 mg/dL (0.2-1.0) Aspartate Amino Transferase (AST) 37 U/L (15-37) Alanine Aminotransferase (ALT) 51 U/L (14-59) Alkaline Phosphatase 98 U/L (46-116) Total Protein 6.9 g/dL (6.4-8.2) Albumin 3.8 g/dL (3.4-5.0) Albumin/Globulin Ratio 1.2 (1.0-1.7) Valproic Acid Level < 3 mcg/mL (50-100) L Valproic Acid Last Dose Date 09/11/16 Valproic Acid Last Dose Time 2100 Current Medications: Meds: Current Medications Ciprofloxacin (Cipro) 500 mg BID PO Last administered on 09/10/16t 07:56; Start 09/08/16 at 21:30; Stop 09/10/16 at 10:49; Status DC Acetaminophen (Tylenol) 650 mg PRN Q6HRS PRN PO PAIN / TEMP Last administered on 09/08/16 22:52; Start 09/08/16 at 21:00; Stop 09/08/16 at 23:46; Status DC Acetaminophen (Tylenol) 650 mg PRN Q6HRS PRN PO PAIN / TEMP; Start 09/08/16 at 23:15 Multi-Ingredient Ointment (Analgesic [place]) 1 nely PRN QID PRN TP MUSCLE PAIN; Start 09/08/16 at 23:15 Al Hydroxide/Mg Hydroxide (Mylanta Plus Xs) 15 ml PRN AFTMEALHC PRN PO DYSPEPSIA; Start 09/08/16 at 23:15 Magnesium Hydroxide (Milk Of Magnesia) 2,400 mg PRN QHS PRN PO CONSTIPATION; Start 09/08/16 at 23:15 Risperidone (Risperdal) 1 mg BID PO Last administered on 09/10/16 07:55; Start 09/09/16 at 21:00; Stop 09/10/16 at 17:54; Status DC Divalproex Sodium (Depakote Er) 500 mg QHS PO Last administered on 09/11/16 18: 48; Start 09/09/16 at 21:00 Atorvastatin Calcium (Lipitor) 10 mg QHS PO Last administered on 09/11/16 18:48 ; Start 09/09/16 at 21:00 Benztropine Mesylate (Cogentin) 0.25 mg DAILY PO Last administered on 09/12/16 07:41; Start 09/10/16 at 09:00 Bupropion HCl (Wellbutrin Xl) 300 mg DAILY08 PO Last administered on 09/12/16 07:40; Start 09/10/16 at 08:00 Gabapentin (Neurontin) 300 mg TID PO Last administered on 09/12/16 13:39; Start 09/09/16 at 21:00 Levothyroxine Sodium (Synthroid) 75 mcg DAILYAC PO Last administered on 07:40; Start 09/10/16 at 07:30 Potassium Chloride (KCl Oral Soln) 20 meq DAILY PO Last administered on 07:42; Start 09/10/16 at 09:00 Fish Oil (Fish Oil) 1,000 mg DAILY PO Last administered on 09/12/16 07:41; Start 09/10/16 at 09:00 Multivitamins/ Calcium (Thera-M Plus) 1 tab DAILY PO Last administered on 07:42; Start 09/10/16 at 09:00 Naproxen (Naprosyn) 250 mg PRN Q12HR PRN PO PAIN/LEG CRAMPS; Start 09/09/16 at 19:45 Ciprofloxacin (Cipro) 250 mg BID PO Last administered on 09/11/16 09:00; Start 09/10/16 at 21:00; Stop 09/11/16 at 09:00; Status DC Risperidone (RisperDAL CONSTA) 25 mg Q2WKS IM Last administered on 09/11/16 13: 18; Start 09/11/16 at 13:00 Cyanocobalamin (Vitamin B-12) 250 mcg DAILYBFRSUP PO Last administered on 16:48; Start 09/11/16 at 17:00 Risperidone (Risperdal) 0.5 mg DAILY SL Last administered on 09/12/16 07:51; Start 09/12/16 at 09:00; Stop 09/12/16 at 15:54; Status DC Risperidone (Risperdal) 1 mg DAILY SL ; Start 09/13/16 at 09:00 Active Scripts Active Reported Naproxen Sodium 220 Mg Capsule 220 Mg PO Q12HR PRN LAST DOSE GIVEN: DATE: TIME: NEXT DOSE DUE: DATE: TIME: Gabapentin 300 Mg Capsule 300 Mg PO TID Levothyroxine Sodium 75 Mcg Tablet 75 Mcg PO DAILYAC Atorvastatin Calcium 10 Mg Tablet 10 Mg PO QHS Wellbutrin Xl (Bupropion Hcl) 300 Mg Tab.er.24h 300 Mg PO DAILY08 LAST DOSE GIVEN: DATE: TIME: NEXT DOSE DUE: DATE: TIME: Daily Vitamin Formula-Minerals (Multivitamin With Minerals) 1 Each Tablet 1 Each PO DAILY LAST DOSE GIVEN: DATE: TIME: NEXT DOSE DUE: DATE: TIME: Benztropine Mesylate 0.5 Mg Tablet 0.25 Mg PO DAILY LAST DOSE GIVEN: DATE: TIME: NEXT DOSE DUE: DATE: TIME: Potassium Chloride Oral Liquid (Potassium Chloride) 20 Meq/15 Ml Liquid 20 Meq PO DAILY LAST DOSE GIVEN: DATE: TIME: NEXT DOSE DUE: DATE: TIME: Risperidone 0.5 Mg Tablet 0.5 Mg PO Q AM LAST DOSE GIVEN: DATE: TIME: NEXT DOSE DUE: DATE: TIME: [place] 3-6-9 1,200 mg Softgel (Fish Oil/Borage/Flax/Om3,6,9#1) 1,200 Mg Capsule 1 ,000 Mg PO DAILY LAST DOSE GIVEN: DATE: TIME: NEXT DOSE DUE: DATE: TIME: Risperidone 1 Mg Tablet 1 Mg PO HS LAST DOSE GIVEN: DATE: TIME: NEXT DOSE DUE: DATE: TIME: Diagnosis: Problems: (1) MDD (major depressive disorder) (2) Bipolar affective, mixed, sev w/ psych (3) Anxiety disorder (4) Impulse control disorder (5) Schizoaffective disorder, bipolar type (6) Schizoaffective disorder, chronic condition with acute exacerbation EVERETT BROOKS MD September 12, 2016 19:09
[2016-09-12] MEDS: DIVALPROEX ER 500 MG TAB.ER.24H PO SCH (20:07)
[2016-09-12] MEDS: ATORVASTATIN CALCIUM 10 MG TABLET. PO SCH (20:07)
[2016-09-13 06:34] VITALS: BP 121/72
[2016-09-13] MEDS: buPROPion XL 300 MG TAB.ER.24H. PO SCH ×2 (08:00→08:19)
[2016-09-13] MEDS: OMEGA-3 FATTY ACIDS/FISH OIL 1,000 MG CAPSULE. PO SCH ×2 (08:19→09:00)
[2016-09-13] MEDS: MULTIVITAMIN with MINERAL TABLET. PO SCH ×2 (08:19→09:00)
[2016-09-13] MEDS: LEVOTHYROXINE 75 MCG TABLET PO SCH (08:19)
[2016-09-13] MEDS: BENZTROPINE MESYLATE 0.5 MG TABLET PO SCH (08:19)
[2016-09-13] MEDS: GABAPENTIN 300 MG CAPSULE. PO SCH ×4 (08:19→20:05)
[2016-09-13] MEDS: risperiDONE ORAL 1 MG/ML 30ml BOTTLE. SL SCH (08:19)
[2016-09-13] MEDS: POTASSIUM CHLORIDE 20 MEQ/15 ML ORAL LIQUID. PO SCH (08:19)
[2016-09-13 15:42] VITALS: BP 108/70
[2016-09-13] MEDS: CYANOCOBALAMIN (VITAMIN B-12) 250 MCG TABLET PO SCH (17:00)
--- NOTE | 2016-09-13 19:47 | PDOC ---
Exam Jorge Demential Exam: Jorge Note: Please also refer to the separate dictated note~for this date of service dictated separately.~Patient seen individually. Discussed the patient with Nursing staff reviewed the chart.~Reviewed interim history and current functioning. Reviewed vital signs,~Labs/ Radiology~and current medications noted below. Continue current treatment with the changes noted in the dictated addendum note Assessment: Vital Signs: Vital Signs Date Time Temp Pulse Resp B/P (MAP) Pulse Ox O2 Delivery O2 Flow Rate FiO2 09/13/16 15:42 98.6 80 20 108/70 (83) 98 09/08/16 21:10 Room Air I&O Intake and Output 09/13/16 07:00 Intake Total 840 ml Balance 840 ml Intake Oral 840 ml # Voids 1 Current Medications: Meds: Current Medications Ciprofloxacin (Cipro) 500 mg BID PO Last administered on 09/10/16 07:56; Start 09/08/16 at 21:30; Stop 09/10/16 at 10:49; Status DC Acetaminophen (Tylenol) 650 mg PRN Q6HRS PRN PO PAIN / TEMP Last administered on 09/08/16 22:52; Start 09/08/16 at 21:00; Stop 09/08/16 at 23:46; Status DC Acetaminophen (Tylenol) 650 mg PRN Q6HRS PRN PO PAIN / TEMP; Start 09/08/16 at 23:15 Multi-Ingredient Ointment (Analgesic [place]) 1 nely PRN QID PRN TP MUSCLE PAIN; Start 09/08/16 at 23:15 Al Hydroxide/Mg Hydroxide (Mylanta Plus Xs) 15 ml PRN AFTMEALHC PRN PO DYSPEPSIA; Start 09/08/16 at 23:15 Magnesium Hydroxide (Milk Of Magnesia) 2,400 mg PRN QHS PRN PO CONSTIPATION; Start 09/08/16 at 23:15 Risperidone (Risperdal) 1 mg BID PO Last administered on 09/10/16 07:55; Start 09/09/16 at 21:00; Stop 09/10/16 at 17:54; Status DC Divalproex Sodium (Depakote Er) 500 mg QHS PO Last administered on 09/11/16 18: 48; Start 09/09/16 at 21:00; Stop 09/13/16 at 19:26; Status DC Atorvastatin Calcium (Lipitor) 10 mg QHS PO Last administered on 09/11/16 18:48 ; Start 09/09/16 at 21:00 Benztropine Mesylate (Cogentin) 0.25 mg DAILY PO Last administered on 09/13/16 08:19; Start 09/10/16 at 09:00 Bupropion HCl (Wellbutrin Xl) 300 mg DAILY08 PO Last administered on 09/12/16 07:40; Start 09/10/16 at 08:00 Gabapentin (Neurontin) 300 mg TID PO Last administered on 09/12/16 13:39; Start 09/09/16 at 21:00 Levothyroxine Sodium (Synthroid) 75 mcg DAILYAC PO Last administered on 08:19; Start 09/10/16 at 07:30 Potassium Chloride (KCl Oral Soln) 20 meq DAILY PO Last administered on 08:19; Start 09/10/16 at 09:00 Fish Oil (Fish Oil) 1,000 mg DAILY PO Last administered on 09/12/16 07:41; Start 09/10/16 at 09:00 Multivitamins/ Calcium (Thera-M Plus) 1 tab DAILY PO Last administered on 07:42; Start 09/10/16 at 09:00 Naproxen (Naprosyn) 250 mg PRN Q12HR PRN PO PAIN/LEG CRAMPS; Start 09/09/16 at 19:45 Ciprofloxacin (Cipro) 250 mg BID PO Last administered on 09/11/16 09:00; Start 09/10/16 at 21:00; Stop 09/11/16 at 09:00; Status DC Risperidone (RisperDAL CONSTA) 25 mg Q2WKS IM Last administered on 09/11/16 13: 18; Start 09/11/16 at 13:00 Cyanocobalamin (Vitamin B-12) 250 mcg DAILYBFRSUP PO Last administered on 16:48; Start 09/11/16 at 17:00 Risperidone (Risperdal) 0.5 mg DAILY SL Last administered on 09/12/16 07:51; Start 09/12/16 at 09:00; Stop 09/12/16 at 15:54; Status DC Risperidone (Risperdal) 1 mg DAILY SL Last administered on 09/13/16t 08:19; Start 09/13/16 at 09:00 Valproic Acid (Depakene) 500 mg DAILY PEG ; Start 09/14/16 at 09:00 Active Scripts Active Reported Naproxen Sodium 220 Mg Capsule 220 Mg PO Q12HR PRN LAST DOSE GIVEN: DATE: TIME: NEXT DOSE DUE: DATE: TIME: Gabapentin 300 Mg Capsule 300 Mg PO TID Levothyroxine Sodium 75 Mcg Tablet 75 Mcg PO DAILYAC Atorvastatin Calcium 10 Mg Tablet 10 Mg PO QHS Wellbutrin Xl (Bupropion Hcl) 300 Mg Tab.er.24h 300 Mg PO DAILY08 LAST DOSE GIVEN: DATE: TIME: NEXT DOSE DUE: DATE: TIME: Daily Vitamin Formula-Minerals (Multivitamin With Minerals) 1 Each Tablet 1 Each PO DAILY LAST DOSE GIVEN: DATE: TIME: NEXT DOSE DUE: DATE: TIME: Benztropine Mesylate 0.5 Mg Tablet 0.25 Mg PO DAILY LAST DOSE GIVEN: DATE: TIME: NEXT DOSE DUE: DATE: TIME: Potassium Chloride Oral Liquid (Potassium Chloride) 20 Meq/15 Ml Liquid 20 Meq PO DAILY LAST DOSE GIVEN: DATE: TIME: NEXT DOSE DUE: DATE: TIME: Risperidone 0.5 Mg Tablet 0.5 Mg PO Q AM LAST DOSE GIVEN: DATE: TIME: NEXT DOSE DUE: DATE: TIME: [place] 3-6-9 1,200 mg Softgel (Fish Oil/Borage/Flax/Om3,6,9#1) 1,200 Mg Capsule 1 ,000 Mg PO DAILY LAST DOSE GIVEN: DATE: TIME: NEXT DOSE DUE: DATE: TIME: Risperidone 1 Mg Tablet 1 Mg PO HS LAST DOSE GIVEN: DATE: TIME: NEXT DOSE DUE: DATE: TIME: Diagnosis: Problems: (1) Urinary tract infection (2) MDD (major depressive disorder) (3) Bipolar affective, mixed, sev w/ psych (4) Anxiety disorder (5) Impulse control disorder (6) Schizoaffective disorder, bipolar type (7) Schizoaffective disorder, chronic condition with acute exacerbation EVERETT BROOKS MD September 13, 2016 19:47
[2016-09-13] MEDS: ATORVASTATIN CALCIUM 10 MG TABLET. PO SCH (20:05)
--- NOTE | 2016-09-13 21:23 | PN ---
DATE: 09/11/2016 PSYCHIATRIC PROGRESS NOTE This is late entry of 09/11/2016, covers elements not covered in my initial note. SUBJECTIVE: The patient had breakfast, no lunch, ate some dinner. Remains quite withdrawn, psychotic and restless. REVIEW OF SYSTEMS: Positive for tiredness. No CV, , pulmonary, eye, ENT system symptoms on review. Reliability varies. MENTAL STATUS EXAMINATION: Reasonably oriented. Speech, often responses monosyllabic. Abstraction fair, computation impaired, language function intact, attention span short. Mood and affect withdrawn, still paranoid, suspicious. LABORATORY DATA: Reviewed. IMPRESSION: Unchanged from initial note. PLAN: Continue Risperdal Consta, Depakote, Wellbutrin, start liquid oral, Risperdal 0.5 mg a day. Adjust further as clinically indicated. MAN Christel BROOKS MD DR: STEPHANIE/anjum JOB#: [id number] / [id number]
--- NOTE | 2016-09-13 22:51 | PN ---
DATE: 09/12/2016 PSYCHIATRIC PROGRESS NOTE This is late entry of 09/12/2016, covers elements not covered in my initial note. SUBJECTIVE: The patient has been withdrawn, irritable, paranoid, appetite poor, refusing medications. LABORATORY DATA: AST, ALT unremarkable. REVIEW OF SYSTEMS: Positive for tiredness. No CV, , pulmonary, eye system symptoms on review. MENTAL STATUS EXAMINATION: Oriented to herself and situation. Speech often responses monosyllabic. Abstraction fair, computation impaired, language function intact. Attention span short, still psychotic. LABORATORY DATA: Reviewed. IMPRESSION: Unchanged from initial note. PLAN: Increase liquid Risperdal to 1 mg a day, maintain. Rest unchanged. Adjust further as clinically indicated. MAN Christel BROOKS MD DR: STEPHANIE/anjum JOB#: [id number] / [id number]
[2016-09-14 06:42] VITALS: BP 169/98
[2016-09-14] MEDS: LEVOTHYROXINE 75 MCG TABLET PO SCH (07:30)
[2016-09-14] MEDS: buPROPion XL 300 MG TAB.ER.24H. PO SCH (08:00)
[2016-09-14] MEDS: VALPROATE ACID 250 MG/5 ML ORAL SOLUTION PO SCH (09:00)
[2016-09-14] MEDS: OMEGA-3 FATTY ACIDS/FISH OIL 1,000 MG CAPSULE. PO SCH (09:00)
[2016-09-14] MEDS: MULTIVITAMIN with MINERAL TABLET. PO SCH (09:00)
[2016-09-14] MEDS ORDERED: VALPROATE ACID 250 MG/5 ML ORAL SOLUTION PEG SCH (09:00)
[2016-09-14] MEDS: BENZTROPINE MESYLATE 0.5 MG TABLET PO SCH (09:00)
[2016-09-14] MEDS: POTASSIUM CHLORIDE 20 MEQ/15 ML ORAL LIQUID. PO SCH (09:00)
[2016-09-14] MEDS: GABAPENTIN 300 MG CAPSULE. PO SCH ×3 (13:40→20:35)
[2016-09-14] MEDS: CYANOCOBALAMIN (VITAMIN B-12) 250 MCG TABLET PO SCH (13:40)
[2016-09-14] MEDS: risperiDONE ORAL 1 MG/ML 30ml BOTTLE. SL SCH (13:44)
[2016-09-14 16:07] VITALS: BP 119/75
--- NOTE | 2016-09-14 20:03 | PDOC ---
Exam Jorge Demential Exam: Jorge Note: Please also refer to the separate dictated note~for this date of service dictated separately.~Patient seen individually. Discussed the patient with Nursing staff reviewed the chart.~Reviewed interim history and current functioning. Reviewed vital signs,~Labs/ Radiology~and current medications noted below. Continue current treatment with the changes noted in the dictated addendum note Assessment: Vital Signs: Vital Signs Date Time Temp Pulse Resp B/P (MAP) Pulse Ox O2 Delivery O2 Flow Rate FiO2 09/14/16 16:07 97.9 71 16 119/75 (90) 98 09/08/16 21:10 Room Air I&O Intake and Output 09/14/16 07:00 Intake Total 360 ml Balance 360 ml Intake Oral 360 ml Current Medications: Meds: Current Medications Ciprofloxacin (Cipro) 500 mg BID PO Last administered on 09/10/16 07:56; Start 09/08/16 at 21:30; Stop 09/10/16 at 10:49; Status DC Acetaminophen (Tylenol) 650 mg PRN Q6HRS PRN PO PAIN / TEMP Last administered on 09/08/16 22:52; Start 09/08/16 at 21:00; Stop 09/08/16 at 23:46; Status DC Acetaminophen (Tylenol) 650 mg PRN Q6HRS PRN PO PAIN / TEMP; Start 09/08/16 at 23:15 Multi-Ingredient Ointment (Analgesic [place]) 1 nely PRN QID PRN TP MUSCLE PAIN; Start 09/08/16 at 23:15 Al Hydroxide/Mg Hydroxide (Mylanta Plus Xs) 15 ml PRN AFTMEALHC PRN PO DYSPEPSIA; Start 09/08/16 at 23:15 Magnesium Hydroxide (Milk Of Magnesia) 2,400 mg PRN QHS PRN PO CONSTIPATION; Start 09/08/16 at 23:15 Risperidone (Risperdal) 1 mg BID PO Last administered on 09/10/16 07:55; Start 09/09/16 at 21:00; Stop 09/10/16 at 17:54; Status DC Divalproex Sodium (Depakote Er) 500 mg QHS PO Last administered on 09/11/16 18: 48; Start 09/09/16 at 21:00; Stop 09/13/16 at 19:26; Status DC Atorvastatin Calcium (Lipitor) 10 mg QHS PO Last administered on 09/11/16 18:48 ; Start 09/09/16 at 21:00 Benztropine Mesylate (Cogentin) 0.25 mg DAILY PO Last administered on 09/13/16 08:19; Start 09/10/16 at 09:00 Bupropion HCl (Wellbutrin Xl) 300 mg DAILY08 PO Last administered on 09/12/16 07:40; Start 09/10/16 at 08:00 Gabapentin (Neurontin) 300 mg TID PO Last administered on 09/14/16 13:40; Start 09/09/16 at 21:00 Levothyroxine Sodium (Synthroid) 75 mcg DAILYAC PO Last administered on 08:19; Start 09/10/16 at 07:30 Potassium Chloride (KCl Oral Soln) 20 meq DAILY PO Last administered on 08:19; Start 09/10/16 at 09:00 Fish Oil (Fish Oil) 1,000 mg DAILY PO Last administered on 09/12/16 07:41; Start 09/10/16 at 09:00 Multivitamins/ Calcium (Thera-M Plus) 1 tab DAILY PO Last administered on 07:42; Start 09/10/16 at 09:00 Naproxen (Naprosyn) 250 mg PRN Q12HR PRN PO PAIN/LEG CRAMPS; Start 09/09/16 at 19:45 Ciprofloxacin (Cipro) 250 mg BID PO Last administered on 09/11/16 09:00; Start 09/10/16 at 21:00; Stop 09/11/16 at 09:00; Status DC Risperidone (RisperDAL CONSTA) 25 mg Q2WKS IM Last administered on 09/11/16 13: 18; Start 09/11/16 at 13:00 Cyanocobalamin (Vitamin B-12) 250 mcg DAILYBFRSUP PO Last administered on 13:40; Start 09/11/16 at 17:00 Risperidone (Risperdal) 0.5 mg DAILY SL Last administered on 09/12/16 07:51; Start 09/12/16 at 09:00; Stop 09/12/16 at 15:54; Status DC Risperidone (Risperdal) 1 mg DAILY SL Last administered on 09/14/16t 13:44; Start 09/13/16 at 09:00 Valproic Acid (Depakene) 500 mg DAILY PEG ; Start 09/14/16 at 09:00; Stop at 09:00; Status DC Valproic Acid (Depakene) 500 mg DAILY PO ; Start 09/14/16 at 09:00 Mirtazapine (Remeron Patricia-Tab) 15 mg QHS PO ; Start 09/14/16 at 21:00 Active Scripts Active Reported Naproxen Sodium 220 Mg Capsule 220 Mg PO Q12HR PRN LAST DOSE GIVEN: DATE: TIME: NEXT DOSE DUE: DATE: TIME: Gabapentin 300 Mg Capsule 300 Mg PO TID Levothyroxine Sodium 75 Mcg Tablet 75 Mcg PO DAILYAC Atorvastatin Calcium 10 Mg Tablet 10 Mg PO QHS Wellbutrin Xl (Bupropion Hcl) 300 Mg Tab.er.24h 300 Mg PO DAILY08 LAST DOSE GIVEN: DATE: TIME: NEXT DOSE DUE: DATE: TIME: Daily Vitamin Formula-Minerals (Multivitamin With Minerals) 1 Each Tablet 1 Each PO DAILY LAST DOSE GIVEN: DATE: TIME: NEXT DOSE DUE: DATE: TIME: Benztropine Mesylate 0.5 Mg Tablet 0.25 Mg PO DAILY LAST DOSE GIVEN: DATE: TIME: NEXT DOSE DUE: DATE: TIME: Potassium Chloride Oral Liquid (Potassium Chloride) 20 Meq/15 Ml Liquid 20 Meq PO DAILY LAST DOSE GIVEN: DATE: TIME: NEXT DOSE DUE: DATE: TIME: Risperidone 0.5 Mg Tablet 0.5 Mg PO Q AM LAST DOSE GIVEN: DATE: TIME: NEXT DOSE DUE: DATE: TIME: [place] 3-6-9 1,200 mg Softgel (Fish Oil/Borage/Flax/Om3,6,9#1) 1,200 Mg Capsule 1 ,000 Mg PO DAILY LAST DOSE GIVEN: DATE: TIME: NEXT DOSE DUE: DATE: TIME: Risperidone 1 Mg Tablet 1 Mg PO HS LAST DOSE GIVEN: DATE: TIME: NEXT DOSE DUE: DATE: TIME: Diagnosis: Problems: (1) Urinary tract infection (2) MDD (major depressive disorder) (3) Bipolar affective, mixed, sev w/ psych (4) Anxiety disorder (5) Impulse control disorder (6) Schizoaffective disorder, bipolar type (7) Schizoaffective disorder, chronic condition with acute exacerbation EVERETT BROOKS MD September 14, 2016 20:03
[2016-09-14] MEDS: MIRTAZAPINE 15 MG TAB.RAPDIS PO SCH (20:34)
[2016-09-14] MEDS: ATORVASTATIN CALCIUM 10 MG TABLET. PO SCH (20:35)
--- NOTE | 2016-09-15 00:46 | PN ---
DATE: 09/13/2016 This is a late entry, covers elements not covered in my initial note. SUBJECTIVE: The patient slept poorly the previous night, refusing her psychotropics. We will change the Depakote ER to liquid and mixed in food and fluids. Follow labs level and she is getting the Risperdal Consta and Risperdal concentrate. REVIEW OF SYSTEMS: Ambulation impaired. No CV, , pulmonary, eye, ENT system, symptoms on review. Reliability varies. MENTAL STATUS EXAM: Oriented to herself and situation. Speech has some latency, coherent. Abstraction fair, computation impaired, language function intact, attention span short. Mood and affect remain somewhat labile. LABORATORY DATA: Reviewed. IMPRESSION: Schizoaffective disorder, bipolar type, mixed with psychotic features. Rest unchanged. PLAN: Continue current psychotropics mentioned in my initial note, change the Depakote to liquid. Check CBC, CMP, and valproic acid level in 3 days. Adjust further as clinically indicated. MAN Christel BROOKS MD DR: STEPHANIE/anjum JOB#: [id number] / [id number]
[2016-09-15 05:58] VITALS: BP 105/62
[2016-09-15] MEDS: LEVOTHYROXINE 75 MCG TABLET PO SCH ×2 (07:42→08:25)
[2016-09-15] MEDS: buPROPion XL 300 MG TAB.ER.24H. PO SCH ×2 (07:43→08:25)
[2016-09-15] MEDS: VALPROATE ACID 250 MG/5 ML ORAL SOLUTION PO SCH (07:44)
[2016-09-15] MEDS: POTASSIUM CHLORIDE 20 MEQ/15 ML ORAL LIQUID. PO SCH (07:44)
[2016-09-15] MEDS: risperiDONE ORAL 1 MG/ML 30ml BOTTLE. SL SCH (07:52)
[2016-09-15] MEDS: BENZTROPINE MESYLATE 0.5 MG TABLET PO SCH ×2 (08:01→08:25)
[2016-09-15] MEDS: MULTIVITAMIN with MINERAL TABLET. PO SCH ×2 (08:02→08:25)
[2016-09-15] MEDS: GABAPENTIN 300 MG CAPSULE. PO SCH ×4 (08:02→19:59)
[2016-09-15] MEDS: OMEGA-3 FATTY ACIDS/FISH OIL 1,000 MG CAPSULE. PO SCH (08:02)
[2016-09-15 14:46] VITALS: BP 99/63
[2016-09-15] MEDS: CYANOCOBALAMIN (VITAMIN B-12) 250 MCG TABLET PO SCH ×2 (17:05→17:48)
[2016-09-15] MEDS: ATORVASTATIN CALCIUM 10 MG TABLET. PO SCH (19:59)
[2016-09-15] MEDS: MIRTAZAPINE 15 MG TAB.RAPDIS PO SCH (19:59)
--- NOTE | 2016-09-15 21:02 | PDOC ---
Exam Jorge Demential Exam: Jorge Note: Please also refer to the separate dictated note~for this date of service dictated separately.~Patient seen individually. Discussed the patient with Nursing staff reviewed the chart.~Reviewed interim history and current functioning. Reviewed vital signs,~Labs/ Radiology~and current medications noted below. Continue current treatment with the changes noted in the dictated addendum note Assessment: Vital Signs: Vital Signs Date Time Temp Pulse Resp B/P (MAP) Pulse Ox O2 Delivery O2 Flow Rate FiO2 09/15/16 14:46 98.2 82 18 99/63 (75) 94 I&O Intake and Output 09/15/16 07:00 Intake Total 120 ml Balance 120 ml Intake Oral 120 ml Current Medications: Meds: Current Medications Ciprofloxacin (Cipro) 500 mg BID PO Last administered on 09/10/16 07:56; Start 09/08/16 at 21:30; Stop 09/10/16 at 10:49; Status DC Acetaminophen (Tylenol) 650 mg PRN Q6HRS PRN PO PAIN / TEMP Last administered on 09/08/16 22:52; Start 09/08/16 at 21:00; Stop 09/08/16 at 23:46; Status DC Acetaminophen (Tylenol) 650 mg PRN Q6HRS PRN PO PAIN / TEMP; Start 09/08/16 at 23:15 Multi-Ingredient Ointment (Analgesic [place]) 1 nely PRN QID PRN TP MUSCLE PAIN; Start 09/08/16 at 23:15 Al Hydroxide/Mg Hydroxide (Mylanta Plus Xs) 15 ml PRN AFTMEALHC PRN PO DYSPEPSIA; Start 09/08/16 at 23:15 Magnesium Hydroxide (Milk Of Magnesia) 2,400 mg PRN QHS PRN PO CONSTIPATION; Start 09/08/16 at 23:15 Risperidone (Risperdal) 1 mg BID PO Last administered on 09/10/16 07:55; Start 09/09/16 at 21:00; Stop 09/10/16 at 17:54; Status DC Divalproex Sodium (Depakote Er) 500 mg QHS PO Last administered on 09/11/16 18: 48; Start 09/09/16 at 21:00; Stop 09/13/16 at 19:26; Status DC Atorvastatin Calcium (Lipitor) 10 mg QHS PO Last administered on 09/11/16 18:48 ; Start 09/09/16 at 21:00 Benztropine Mesylate (Cogentin) 0.25 mg DAILY PO Last administered on 09/13/16 08:19; Start 09/10/16 at 09:00 Bupropion HCl (Wellbutrin Xl) 300 mg DAILY08 PO Last administered on 09/12/16 07:40; Start 09/10/16 at 08:00 Gabapentin (Neurontin) 300 mg TID PO Last administered on 09/14/16 13:40; Start 09/09/16 at 21:00 Levothyroxine Sodium (Synthroid) 75 mcg DAILYAC PO Last administered on 08:19; Start 09/10/16 at 07:30 Potassium Chloride (KCl Oral Soln) 20 meq DAILY PO Last administered on 07:44; Start 09/10/16 at 09:00 Fish Oil (Fish Oil) 1,000 mg DAILY PO Last administered on 09/15/16 08:02; Start 09/10/16 at 09:00 Multivitamins/ Calcium (Thera-M Plus) 1 tab DAILY PO Last administered on 07:42; Start 09/10/16 at 09:00 Naproxen (Naprosyn) 250 mg PRN Q12HR PRN PO PAIN/LEG CRAMPS; Start 09/09/16 at 19:45 Ciprofloxacin (Cipro) 250 mg BID PO Last administered on 09/11/16 09:00; Start 09/10/16 at 21:00; Stop 09/11/16 at 09:00; Status DC Risperidone (RisperDAL CONSTA) 25 mg Q2WKS IM Last administered on 09/11/16 13: 18; Start 09/11/16 at 13:00 Cyanocobalamin (Vitamin B-12) 250 mcg DAILYBFRSUP PO Last administered on 13:40; Start 09/11/16 at 17:00 Risperidone (Risperdal) 0.5 mg DAILY SL Last administered on 09/12/16 07:51; Start 09/12/16 at 09:00; Stop 09/12/16 at 15:54; Status DC Risperidone (Risperdal) 1 mg DAILY SL Last administered on 09/15/16 07:52; Start 09/13/16 at 09:00 Valproic Acid (Depakene) 500 mg DAILY PEG ; Start 09/14/16 at 09:00; Stop at 09:00; Status DC Valproic Acid (Depakene) 500 mg DAILY PO Last administered on 09/15/16 07:44; Start 09/14/16 at 09:00 Mirtazapine (Remeron Patricia-Tab) 15 mg QHS PO Last administered on 09/15/16 19:59 ; Start 09/14/16 at 21:00 Active Scripts Active Reported Naproxen Sodium 220 Mg Capsule 220 Mg PO Q12HR PRN LAST DOSE GIVEN: DATE: TIME: NEXT DOSE DUE: DATE: TIME: Gabapentin 300 Mg Capsule 300 Mg PO TID Levothyroxine Sodium 75 Mcg Tablet 75 Mcg PO DAILYAC Atorvastatin Calcium 10 Mg Tablet 10 Mg PO QHS Wellbutrin Xl (Bupropion Hcl) 300 Mg Tab.er.24h 300 Mg PO DAILY08 LAST DOSE GIVEN: DATE: TIME: NEXT DOSE DUE: DATE: TIME: Daily Vitamin Formula-Minerals (Multivitamin With Minerals) 1 Each Tablet 1 Each PO DAILY LAST DOSE GIVEN: DATE: TIME: NEXT DOSE DUE: DATE: TIME: Benztropine Mesylate 0.5 Mg Tablet 0.25 Mg PO DAILY LAST DOSE GIVEN: DATE: TIME: NEXT DOSE DUE: DATE: TIME: Potassium Chloride Oral Liquid (Potassium Chloride) 20 Meq/15 Ml Liquid 20 Meq PO DAILY LAST DOSE GIVEN: DATE: TIME: NEXT DOSE DUE: DATE: TIME: Risperidone 0.5 Mg Tablet 0.5 Mg PO Q AM LAST DOSE GIVEN: DATE: TIME: NEXT DOSE DUE: DATE: TIME: [place] 3-6-9 1,200 mg Softgel (Fish Oil/Borage/Flax/Om3,6,9#1) 1,200 Mg Capsule 1 ,000 Mg PO DAILY LAST DOSE GIVEN: DATE: TIME: NEXT DOSE DUE: DATE: TIME: Risperidone 1 Mg Tablet 1 Mg PO HS LAST DOSE GIVEN: DATE: TIME: NEXT DOSE DUE: DATE: TIME: Diagnosis: Problems: (1) Urinary tract infection (2) MDD (major depressive disorder) (3) Bipolar affective, mixed, sev w/ psych (4) Anxiety disorder (5) Impulse control disorder (6) Schizoaffective disorder, bipolar type (7) Schizoaffective disorder, chronic condition with acute exacerbation EVERETT BROOKS MD September 15, 2016 21:02
--- NOTE | 2016-09-16 00:01 | PN ---
DATE: 09/14/2016 PSYCHIATRIC PROGRESS NOTE This is late entry of 09/14/2016, covers elements not covered in my initial note. SUBJECTIVE: The patient refused breakfast and lunch, ate some supper, Risperdal liquid had to be put in water. She slept 2-3/4 hours previous night, sleeping during the day, not attending activities, still somewhat psychotic, delusional. REVIEW OF SYSTEMS: Positive for impaired ambulation. No CV, , pulmonary, eye system symptoms on review. MENTAL STATUS EXAMINATION: Oriented to herself and situation. Speech is coherent, has some latency, often responses monosyllabic. Abstraction fair, computation impaired, language function intact. Mood and affect still somewhat withdrawn. LABORATORY DATA: Reviewed. IMPRESSION: Schizoaffective disorder, bipolar type, depressed versus major depressive disorder, recurrent with psychotic features. Rest unchanged. PLAN: Continue psychotropics mentioned in my initial note, start Remeron 15 mg at bedtime to help with the insomnia, Wellbutrin XL at 300 mg a day, Depakene 500 mg in the morning, Risperdal Consta at 25 mg IM every 2 weeks and oral Risperdal liquid 1 mg daily. MAN Christel BROOKS MD DR: STEPHANIE/anjum JOB#: [id number] / [id number]
[2016-09-16] MEDS ORDERED: ACET325T21 PO (01:01)
[2016-09-16] MEDS ORDERED: CYAN500T17 PO (01:02)
[2016-09-16] MEDS ORDERED: MAG355OR87 PO (01:04)
[2016-09-16] MEDS ORDERED: METH29OI TP (01:05)
[2016-09-16] MEDS ORDERED: MAGN2400 PO (01:05)
[2016-09-16] MEDS ORDERED: MIRT15TA3 PO (01:07)
[2016-09-16] MEDS ORDERED: VALP250S PO (01:10)
[2016-09-16] MEDS ORDERED: VALP500S PO (01:10)
[2016-09-16] MEDS ORDERED: RISP25DI IM (01:11)
[2016-09-16] MEDS ORDERED: RISP1TAB SL (01:12)
[2016-09-16 06:55] VITALS: BP 101/72
[2016-09-16] MEDS: LEVOTHYROXINE 75 MCG TABLET PO SCH (07:30)
[2016-09-16] MEDS: VALPROATE ACID 250 MG/5 ML ORAL SOLUTION PO SCH (07:57)
[2016-09-16] MEDS: risperiDONE ORAL 1 MG/ML 30ml BOTTLE. SL SCH (07:58)
[2016-09-16] MEDS: buPROPion XL 300 MG TAB.ER.24H. PO SCH (08:00)
[2016-09-16 08:37] LABS: BASO # 0.1 x10^3/uL (0.0-0.2); BASO % 1 % (0-3); EOS # 0.1 x10^3/uL (0.0-0.7); EOS % 1 % (0-3); HEMATOCRIT 40.5 % (36.0-47.0); HEMOGLOBIN 13.9 g/dL (12.0-15.5); LYMPH # 2.5 x10^3/uL (1.0-4.8); LYMPH % 37 % (24-48); MEAN CORPUSCULAR HEMOGLOBIN 30 pg (25-35); MEAN CORPUSCULAR HGB CONC 34 g/dL (31-37); MEAN CORPUSCULAR VOLUME 86 fL (79-100); MONO # 0.6 x10^3/uL (0.0-1.1); MONO % 8 % (0-9); NEUT # 3.7 x10^3uL (1.8-7.7); NEUT % 53 % (31-73); PLATELET COUNT 159 x10^3/uL (140-400); WHITE BLOOD COUNT 6.9 x10^3/uL (4.0-11.0)
[2016-09-16] MEDS: GABAPENTIN 300 MG CAPSULE. PO SCH (08:48)
[2016-09-16] MEDS: BENZTROPINE MESYLATE 0.5 MG TABLET PO SCH (08:48)
[2016-09-16] MEDS: POTASSIUM CHLORIDE 20 MEQ/15 ML ORAL LIQUID. PO SCH (08:48)
[2016-09-16] MEDS: MULTIVITAMIN with MINERAL TABLET. PO SCH (08:48)
[2016-09-16] MEDS: OMEGA-3 FATTY ACIDS/FISH OIL 1,000 MG CAPSULE. PO SCH (08:48)
[2016-09-16 08:56] LABS: ALBUMIN 3.5 g/dL (3.4-5.0); ALBUMIN/GLOBULIN RATIO 1.1 (1.0-1.7); ALK PHOS 82 U/L (46-116); ALT (SGPT) 37 U/L (14-59); ANION GAP 10 (6-14); AST (SGOT) 23 U/L (15-37); BLOOD UREA NITROGEN 9 mg/dL (7-20); BUN/CREATININE RATIO 13 (6-20); CALCIUM 9.1 mg/dL (8.5-10.1); CARBON DIOXIDE 25 mmol/L (21-32); CHLORIDE 110 mmol/L (98-107); CREATININE 0.7 mg/dL (0.6-1.0); GFR 84.8; GLUCOSE 100 mg/dL (70-99); POTASSIUM 3.4 mmol/L (3.5-5.1); SODIUM 145 mmol/L (136-145); TOTAL BILIRUBIN 0.5 mg/dL (0.2-1.0); TOTAL PROTEIN 6.8 g/dL (6.4-8.2)
[2016-09-16 08:58] LABS: VAL ACID 14 mcg/mL (50-100)
--- NOTE | 2016-09-17 09:41 | PN ---
DATE: 09/15/2016 PSYCHIATRIC PROGRESS NOTE This is an entry for 09/15/2016, covers elements not covered in my initial note. SUBJECTIVE: The patient remains withdrawn. Her mother visited, often refuses medications, but she is on the Risperdal Consta, which should help. She did get her Risperdal and Depakote in food earlier on 09/15/2016. REVIEW OF SYSTEMS: No CV, , pulmonary, eye, ENT system symptoms on review. I met with her in her room. MENTAL STATUS EXAM: Reasonably oriented. Speech coherent, abstraction fair, computation impaired, language function intact, attention span short. Mood and affect still somewhat withdrawn, intermittently psychotic. LABORATORY DATA: Reviewed. IMPRESSION: Unchanged from initial note. PLAN: Continue Risperdal Consta at 25 mg IM every 2 weeks, Depakene 500 mg daily. Level is low, but this is due to noncompliance. Continue Wellbutrin-XL, Remeron and Risperdal concentrate oral. MAN Christel BROOKS MD DR: STEPHANIE/anjum JOB#: [id number] / [id number]
--- NOTE | 2016-09-18 17:37 | DS ---
DATE OF DISCHARGE: 09/16/2016 DISCHARGE SUMMARY/PSYCHIATRIC PROGRESS NOTE REASON FOR ADMISSION: Please refer to the admission history for details. Briefly, the patient is a 61-year-old female referred to us from [facility] by Dr. Varela, her primary care physician on account of worsening symptoms of schizoaffective disorder, bipolar type. The patient had been noncompliant with her medications for several weeks, not bathing for about a month, staying in bed, refusing to change her clothes, voicing suicidal ideation. She had failed outpatient psychiatric interventions with myself, was depressed, psychotic within the context of her schizoaffective disorder, bipolar type and referred for inpatient psychiatric stabilization. SIGNIFICANT FINDINGS AND CLINICAL COURSE: Following admission, the patient was seen daily individually by myself, followed medically per Dr. Dickerson/Dr. Summers. She remained extremely withdrawn, psychotic, paranoid, irritable, angry initially. She was refusing all her psychotropics and started on Risperdal Consta 25 mg IM every 2 weeks, Depakene 500 mg daily, Wellbutrin XL 300 mg a day, Remeron 15 mg at bedtime, Risperdal concentrated liquid 1 mg daily. Other than the Risperdal Consta, she was intermittently noncompliant with the rest of her psychotropics and therefore progress was not as rapid as we had expected initially. Gradually, however, she was less withdrawn, coming out for meals at times, still paranoid, psychotic, depressed, but better. No suicidal or homicidal ideation prior to discharge. Prior to discharge on 09/16/2016, temperature 98.9, BP 101/72, pulse 81 and respirations 16. REVIEW OF SYSTEMS: No CV, , pulmonary, eye system symptoms on review. MENTAL STATUS EXAMINATION: Oriented to herself and situation. Speech moderate latency, often responses monosyllabic. Abstraction fair, computation impaired, language function intact. Mood and affect still withdrawn, but better than before. LABORATORY DATA: Reviewed. FINAL DIAGNOSES: Schizoaffective disorder, bipolar type, depressed with psychotic features in partial remission; anxiety disorder, unspecified; impulse control disorder, unspecified. Rest diagnoses unchanged. DISCHARGE MEDICATIONS: Please refer to the MRAD. DISCHARGE INSTRUCTIONS: Outpatient psychiatric and medical followup back at [facility]. I will see her there from a psychiatric standpoint. Time for discharge day management greater than 30 minutes. MAN Christel BROOKS MD DR: STEPHANIE/anjum JOB#: [id number] / [id number]
== END 2016-09-16 13:31 | DRG 885 ==
LOC: ER 18:15 → GEROPSY 21:27
PROVIDERS: ADMIT Psychiatry & Neurology Psychiatry; ATTEND Psychiatry & Neurology Psychiatry
DX: F25.0 Schizoaffective disorder, bipolar type (principal); N39.0 Urinary tract infection, site not specified; F32.9 Major depressive disorder, single episode, unspecified; F31.60 Bipolar disorder, current episode mixed, unspecified; E03.9 Hypothyroidism, unspecified; E78.5 Hyperlipidemia, unspecified; F03.90 Unspecified dementia, unspecified severity, without behavioral disturbance, psychotic disturbance, mood disturbance, and anxiety; F41.9 Anxiety disorder, unspecified; F63.9 Impulse disorder, unspecified; G89.29 Other chronic pain; I10 Essential (primary) hypertension; Z90.710 Acquired absence of both cervix and uterus; Z91.14 Patient's other noncompliance with medication regimen
CPT/HCPCS: 36415; 80053; 80061; 80164; 81001; 82306; 82607; 83036; 83540; 83550; 83735; 84436; 84443; 84480; 85027; 86592; 86593; 87086; 93005; G0481; J2794; 99285-25